=== PATIENT | male | born 1990 | race Caucasian/White ===

== ENCOUNTER 2016-06-20 22:29 | Emergency (ER) | payer OTHER ==
[~2016-06-20] VITALS: Ht 165.1 cm; Wt 103.5 kg
[~2016-06-20 22:29] MED LIST: IBUP-1542 PO; LORA1TAB PO
[2016-06-20 22:57] VITALS: Ht 165.1 cm; Wt 103.5 kg
[2016-06-21] MEDS ORDERED: DIPHTH/TET/ACEL PERTUSS (ADULT) 0.5 ML VIAL IM* ONE (01:30)
[2016-06-21] MEDS ORDERED: IBUP-1542 PO (01:43)
--- NOTE | 2016-06-21 01:50 | ERD ---
ER Documentation Chief Complaint Date/Time DATE: 06/21/16 TIME: 01:47 Chief Complaint Laceration Left middle finger with a knife HPI This is a 26-year-old male presents to the ER with a laceration to his left middle finger that occurred while he was cutting something at work. Patient denies any numbness or tingling to his finger. Bleeding was controlled before arriving to the ER. Patient does not have a recent tetanus shot. ROS 12 point review of systems was done, all negative except per HPI. Medications Home Meds Active Scripts Ibuprofen* (Motrin*) 600 Mg Tab, 600 MG PO Q6, #30 TAB Prov:MARCIAL IGLESIAS 06/21/16 Lorazepam* (Lorazepam*) 1 Mg Tablet, 1 MG PO Q8, #12 TAB Prov:BEBA HERNANDEZ MD 02/05/16 Ibuprofen* (Motrin*) 600 Mg Tab, 600 MG PO Q6, #20 TAB Prov:BEBA HERNANDEZ MD 02/05/16 Allergies Allergies: Coded Allergies: No Known Allergy (Unverified , 03/14/16) PMhx/Soc History of Surgery: No Anesthesia Reaction: No Hx Neurological Disorder: No Hx Respiratory Disorders: No Hx Cardiac Disorders: No Hx Psychiatric Problems: Yes (anxiety) Hx Miscellaneous Medical Probl: No Hx Alcohol Use: No Hx Substance Use: Yes (marijuana) Hx Tobacco Use: No Physical Exam Vitals Vital Signs Date Time Temp Pulse Resp B/P Pulse Ox O2 Delivery O2 Flow Rate FiO2 06/20/16 22:57 99.4 92 20 118/58 97 Physical Exam Const: [] Head: Atraumatic Eyes: Normal Conjunctiva Resp: Clear to auscultation bilaterally Cardio: Regular rate and rhythm, no murmurs Skin: There is a 0.5 cm extremely superficial laceration to the dorsal distal third digit. Neur: Awake and alert Extremities: patient has full ROM of his 3rd digit. normal strength and sensation. DTP and DTS are intact. Results 24 hrs Current Medications Medications (Trade) Dose Ordered Sig/Carmelo Route PRN Reason Start Time Stop Time Status Last Admin Dose Admin Diphtheria/ Tetanus/Acell Pertussis (Adacel) 0.5 ml ONCE ONCE IM* 06/21/16 01:30 06/21/16 01:31 DC 06/21/16 01:40 Procedures/MDM This 26-year-old male presents to the ER with a very superficial laceration to the third digit. Patient does not need sutures at this time area was Dermabond by myself without any complications. Patient is neurovascularly intact with full range of motion of his digit. He was given a Tdap shot. He will be sent home with ibuprofen. Needs to follow-up with his primary care doctor within 1- 2 days or return to ER sooner if symptoms worsen. My medical decision making was shared with the patient he understands and agrees with plan. Departure Diagnosis: Primary Impression: Laceration Condition: Stable Patient Instructions: Laceration, Hand Additional Instructions: Call your primary care doctor TOMORROW for an appointment during the next 1-2 days.See the doctor sooner or return here if your condition worsens before your appointment time. MARCIAL IGLESIAS Jun 21, 2016 01:50
== END 2016-06-21 02:01 | disposition home or self-care (01) ==
LOC: FTE 22:29
DX: S61.213A Laceration without foreign body of left middle finger without damage to nail, initial encounter (principal); W26.0XXA Contact with knife, initial encounter; Y92.89 Other specified places as the place of occurrence of the external cause; Z23 Encounter for immunization
CPT/HCPCS: 90471; 90715